=== PATIENT | female | born 1960 | race Caucasian/White ===

== ENCOUNTER 2017-06-13 21:26 | Inpatient (IN) | payer OTHER ==
[~2017-06-13] VITALS: Ht 160 cm; Wt 65.8 kg
--- NOTE | 2017-06-13 21:26 | NUR ---
BIB WHEELCHAIR FROM [facility] LOB[facility] TO ER BED 9
[2017-06-13 21:35] VITALS: BP 144/83
--- NOTE | 2017-06-13 21:36 | NUR ---
57 Y/O F W/C/O CHEST PRESSURE PAIN WHICH RADIATES TO L SIDE OF NECK AND NAUSEA X 2 HRS AGO. MED HX ASTHMA, GALLBLADDER REMOVED, AND HYSTERECTOMY. ON FASHION CONSULTANT SELLING, NSR, ER MD MADE AWARE. EKG DONE AT BEDSIDE.
--- NOTE | 2017-06-13 21:47 | NUR ---
Patient being evaluated by physician at bedside.
[2017-06-13] MEDS ORDERED: NITROGLYCERIN 0.4 MG TAB SL ONE (21:50)
[2017-06-13 22:17] LABS: HEMATOCRIT 42.8 % (36-48); HEMOGLOBIN 13.9 g/dL (12.0-16.0); MEAN CORPUSCULAR HEMOGLOBIN 28 pg (27-31); MEAN CORPUSCULAR HGB CONC 33 g/dL (33-37); MEAN CORPUSCULAR VOLUME 85 fL (80-94); PLATELET COUNT (AUTO) 398 K/uL (140-450); RED BLOOD CELL COUNT(AUTO) 5.04 MIL/uL (4.20-5.40); RED CELL DISTRIBUTION WIDTH 12.6 % (11.6-13.7); WHITE BLOOD COUNT (AUTO) 6.2 K/uL (4.8-10.8)
[2017-06-13] MEDS ORDERED: ONDANSETRON 4 MG/2 ML VIAL IVP ONE (22:20)
[2017-06-13] MEDS ORDERED: ACETAMINOPHEN EXTRA STRENGTH 500 MG TAB PO ONE (22:20)
[2017-06-13 22:31] LABS: EOSINOPHILS % (MANUAL) 1 % (0-4); LYMPHOCYTES % (MANUAL) 29 % (20-46); MONOCYTES % (MANUAL) 5 % (5-12)
[2017-06-13 22:33] LABS: PROTHROMBIN TIME 10.1 secs (10.8-13.4)
[2017-06-13 22:34] LABS: ANION GAP 13.4 (8-16); CARBON DIOXIDE 28.3 mmol/L (21-32); POTASSIUM 3.7 mmol/L (3.5-5.1)
[2017-06-13 22:35] LABS: ALBUMIN 4.3 g/dL (3.4-5.0); CREATININE 0.9 mg/dL (0.6-1.3); TOTAL BILIRUBIN 0.6 mg/dL (0.0-1.0)
[2017-06-13] MEDS ORDERED: MORPHINE SULFATE 2 MG/ML SYR IVP PRN (23:10)
[2017-06-13] MEDS ORDERED: ACETAMINOPHEN 325 MG TAB PO PRN (23:10)
[2017-06-13] MEDS ORDERED: MORPHINE SULFATE 4 MG/ML SYR IVP ONE (23:30)
--- NOTE | 2017-06-13 23:40 | NUR ---
Patient will be admitted to care of DR GONSALVES. Admited to TELEMETRY. Will go to room 111A. Belongings list completed. Report to THOMAS DAVALOS.
[2017-06-13 23:50] VITALS: BP 139/91
--- NOTE | 2017-06-13 23:50 | NUR ---
Admitted from ER, with chief complaint of CHEST PAIN, DX CHEST PAIN. 57 y/o, Female, Cooperative, AOX4, AMBULATORY, ABLE TO VERBALIZE NEEDS. PT IS SITTING UP IN BED, C/O CHEST PAIN/PRESSURE, PT WAS MEDICATED IN THE ER, WILL CONTINUE TO MONITOR. PT C/O NAUSEA/VOMITING, PT WAS MEDICATED IN ER, WILL MONITOR. PT DENIES SOB AT THIS TIME. IV ACCESS ASYMPTOMATIC, PATENT AND INTACT. SALINE LOCKED. DISCUSSED AND REVIEWED PLAN OF CARE WITH PT. PT VERBALIZED UNDERSTANDING. oriented to call light, bed, phone,television, bathroom, smoking policy, visiting hours, procedures, ID bracelet on. Belongings list checked. ALL NEEDS MET. SAFETY MEASURES ENSURED. CALL LIGHT WITHIN REACH. WILL CONTINUE TO MONITOR. Addendum: 06/14/17 at 0627 by Scar Olivas RN TO ADD: DID NOT APPLY SCDs DUE TO PT AMBULATORY AND SCHEDULED LOVENOX 40MG SUBQ DAILY IN THE AM.
--- NOTE | 2017-06-13 23:59 | NUR ---
PT TRASFERED TO FLOOR VIA GURNEY, ACCOMPANIED BY EMT AND RN. NO S/S OF DISTRESS NOTED UPON TRANSFER.
--- NOTE | 2017-06-14 00:15 | NUR ---
PT C/O CHEST PAIN/PRESSURE, SEE PAIN ASSESSMENT, ADMINISTERED NITROSTAT 0.4MG SL PRN ORDERED. PT C/O NAUSEA/VOMITING, ADMINISTERED ZOFRAN IVP PRN ORDERED. Addendum: 06/14/17 at 0226 by Scar Olivas RN WRONG TIME; CORRECT TIME: 06/14/17 0112
[2017-06-14] MEDS ORDERED: NITROGLYCERIN 0.4 MG TAB SL PRN (00:40)
[2017-06-14] MEDS ORDERED: MORPHINE SULFATE 4 MG/ML SYR IVP PRN (00:40)
--- NOTE | 2017-06-14 00:40 | NUR ---
CALLED DR RAMIREZ, [employer] TRUCK DRIVER FOR DR GONSALVES. DISCUSSED PT DX CHEST PAIN AND PT'S C/O UNRELIEVED CHEST PAIN/PRESSURE DESPITE MORPHINE 4MG IVP 45 MINS AGO IN ER, AND THAT PT REPORTS GREATER RELIEF FROM NITROSTAT 0.4MG SL IN ER. ALSO MADE AWARE THAT PT HAS N/V DESPITE ZOFRAN 2MG IVP 2 HOURS AGO IN ER. STATED IT IS OK TO GIVE ZOFRAN 2MG IVP PRN AT THIS TIME. ORDERS RECEIVED FOR MORPHINE 4MG IVP Q4H PRN FOR SEVERE PAIN, AND NITROSTAT 0.4MG Q2H SL PRN FOR CHEST PAIN. ORDERS PENDING, WILL CARRY OUT.
[2017-06-14] MEDS: ALBUTEROL 0.083% 2.5 MG/3 ML NEBU IH SCH ×3 (01:00→13:12)
--- NOTE | 2017-06-14 01:01 | NUR ---
PT REFUSED INITIAL HHN TX AT THIS TIME, PT STATES SHE IS FEELING NAUSEOUS AND IS BREATHING FINE, NO RESP DISTRESS OR SOB NOTED, O2 SAT 97% ON RA, WILL CONTINUE WITH NEXT SCHEDULED TX.
[2017-06-14] MEDS: ONDANSETRON 4 MG/2 ML VIAL IVP PRN ×2 (01:12→10:42)
--- NOTE | 2017-06-14 01:12 | NUR ---
PT C/O CHEST PAIN/PRESSURE, SEE PAIN ASSESSMENT, ADMINISTERED NITROSTAT 0.4MG SL PRN ORDERED. PT C/O NAUSEA/VOMITING, ADMINISTERED ZOFRAN IVP PRN ORDERED.
[2017-06-14] MEDS ORDERED: ZOLPIDEM 10 MG TAB PO PRN (02:50)
--- NOTE | 2017-06-14 02:52 | NUR ---
CALLED DR RAMIREZ, ANDROID UI DEVELOPER FOR DR GONSALVES. DISCUSSED PT DX CHEST PAIN, AND PT'S REPORTED AMBIEN 10MG PO FOR INSOMNIA AT HOME, AND PT C/O INSOMNIA AT THIS TIME. STATED IT IS OK TO CONTINUE HOME MED. ORDERS PENDING, WILL CARRY OUT.
--- NOTE | 2017-06-14 03:15 | NUR ---
PT RESTING COMFORTABLY IN BED, NO S/S OF ACUTE DISTRESS. PT REPORTS RELIEF OF CHEST PAIN, 2/10 AND RELIEF OF NAUSEA/VOMITING, STATING "IT'S BETTER." PT C/O INSOMNIA, ADMINISTERED AMBIEN PO PRN ORDERED WITH EDUCATION. PT VERBALIZED UNDERSTANDING, TOLERATED MED WELL. PT REFUSED TO LET PHARMACY KEEP VENTOLIN INHALER DESPITE EDUCATION OF POLICY AND SCHEDULED ALBUTEROL BREATHING TREATMENTS, STATING "I'D FREAK OUT IF I DON'T HAVE IT WITH ME." PT INSTRUCTED TO USE CALL LIGHT WHEN FEELING SOB, PT VERBALIZED UNDERSTANDING. ALL NEEDS MET. SAFETY MEASURES ENSURED. CALL LIGHT WITHIN REACH. WILL CONTINUE TO MONITOR.
[2017-06-14 04:00] VITALS: BP 105/54
[2017-06-14] MEDS ORDERED: ZOLP10TA1 PO (04:01)
[2017-06-14] MEDS ORDERED: ALBU-118 IH (04:01)
[2017-06-14] MEDS ORDERED: ALBU0.0912 IH (04:01)
[2017-06-14 04:43] LABS: BASOPHILS # (AUTO) 0.3 K/uL (0.00-0.22); BASOPHILS % (AUTO) 4.7 % (0.0-2.0); EOSINOPHILS # (AUTO) 0.3 K/uL (0-0.4); EOSINOPHILS % (AUTO) 4.4 % (0.0-4.0); HEMATOCRIT 40.5 % (36-48); HEMOGLOBIN 13.1 g/dL (12.0-16.0); LYMPHOCYTES # (AUTO) 1.5 K/uL (2.5-16.5); LYMPHOCYTES % (AUTO) 24.6 % (20.5-51.1); MEAN CORPUSCULAR HEMOGLOBIN 28 pg (27-31); MEAN CORPUSCULAR HGB CONC 32 g/dL (33-37); MEAN CORPUSCULAR VOLUME 85 fL (80-94); MONOCYTES # (AUTO) 0.5 K/uL (0.8-1.0); NEUTROPHILS # (AUTO) 3.6 K/uL (1.8-7.7); NEUTROPHILS % (AUTO) 58.3 % (42.2-75.2); PLATELET COUNT (AUTO) 355 K/uL (140-450); RED BLOOD CELL COUNT(AUTO) 4.75 MIL/uL (4.20-5.40); RED CELL DISTRIBUTION WIDTH 12.7 % (11.6-13.7); WHITE BLOOD COUNT (AUTO) 6.2 K/uL (4.8-10.8)
--- NOTE | 2017-06-14 05:45 | NUR ---
PT SLEEPING COMFORTABLY, NO S/S OF ACUTE DISTRESS. ALL NEEDS MET. SAFETY MEASURES ENSURED. CALL LIGHT WITHIN REACH. WILL CONTINUE TO MONITOR.
[2017-06-14 06:03] LABS: ALBUMIN 3.8 g/dL (3.4-5.0); ANION GAP 11.2 (8-16); CARBON DIOXIDE 29.3 mmol/L (21-32); CREATININE 0.9 mg/dL (0.6-1.3); POTASSIUM 3.5 mmol/L (3.5-5.1); TOTAL BILIRUBIN 0.7 mg/dL (0.0-1.0)
--- NOTE | 2017-06-14 07:21 | NUR ---
ENDORSED PLAN OF CARE TO AM NURSE. CONDITION STABLE.
--- NOTE | 2017-06-14 07:21 | NUR ---
RECEIVED REPORT FROM NIGHT NURSE, PT IS AAOX4, ON ROOM AIR, IV TO RIGHT AC 20G SALINE LOCK PATENT AND INTACT, SKIN INTACT, PT STATES NO CHEST PAIN AT THIS TIME, INITIAL ASSESSMENT COMPLETED, REVIEWED PLAN OF CARE WITH PT, PT VERBALIZED UNDERSTANDING. ALL SAFETY PRECAUTIONS IN PLACE, CALL LIGHT WITHIN REACH. WILL CONTINUE TO MONITOR.
--- NOTE | 2017-06-14 07:52 | NUR ---
PATIENT HAS BEEN SCREENED AND CATEGORIZED MODERATE NUTRITION RISK. PATIENT WILL BE SEEN WITHIN 3-5 DAYS OF ADMISSION. 06/16/17-06/18/[address]
[2017-06-14 08:00] VITALS: BP 94/57
[2017-06-14] MEDS ORDERED: ASPIRIN 81 MG TAB.CHEW PO SCH (09:00)
[2017-06-14] MEDS ORDERED: ENOXAPARIN 40 MG/0.4 ML SYR SUBQ SCH (09:00)
--- NOTE | 2017-06-14 09:28 | NUR ---
DUE MEDICATIONS GIVEN, PT TOLERATED WELL, ALL NEEDS MET, PT STATES NO CHEST PAIN. WILL CONTINUE TO MONITOR.
--- NOTE | 2017-06-14 10:41 | NUR ---
CM NOTE INITIAL REVIEW FAXED TO [facility] [phone] ELENITA GOMESA # [phone]
--- NOTE | 2017-06-14 10:43 | NUR ---
PT C/O NAUSEA, MEDICATED PER MD ORDERS. ALL NEEDS MET. WILL CONTINUE TO MONITOR.
--- NOTE | 2017-06-14 11:45 | NUR ---
PT CURRENTLY RESTING IN BED, NO S/S OF DISTRESS NOTED. ALL NEEDS MET.
[2017-06-14 12:00] VITALS: BP 105/69
--- NOTE | 2017-06-14 13:22 | NUR ---
STRESS TEST DONE. PATIENT BACK TO HER ROOM IN STABLE CONDITION
--- NOTE | 2017-06-14 14:27 | NUR ---
DISCUSSED DISCHARGE PLAN WITH PT, PT VERBALIZED UNDERSTANDING.
--- NOTE | 2017-06-14 14:54 | NUR ---
PT SIGNED ALL DISCHARGE PAPERWORK, DISCHARGE EDUCATION GIVEN,FOLLOW UP INFORMATION GIVEN, PRESCRIPTION EDUCATION GIVEN, PT VERBALIZED UNDERSTANDING, IV REMOVED TIP INTACT, ID BANDS REMOVED. ALL PERSONAL BELONGINGS WITH PT.
--- NOTE | 2017-06-14 14:57 | NUR ---
PT WAS WALKED OUT TO FRONT LOBBY IN STABLE CONDITION.
== END 2017-06-14 14:57 | disposition home or self-care (01) | DRG 203 ==
LOC: MED 21:26 → MTU 23:15
PROVIDERS: ADMIT Hospitalist; ATTEND Hospitalist
DX: R07.89 Other chest pain (principal); J45.909 Unspecified asthma, uncomplicated; Z88.5 Allergy status to narcotic agent; Z98.84 Bariatric surgery status; Z90.710 Acquired absence of both cervix and uterus; Z90.49 Acquired absence of other specified parts of digestive tract
CPT/HCPCS: 36415; 71010; 80053; 83880; 84484; 85025; 85610; 85730; 87081; 93005; 93017; 94640; 96374; 96375; 99285; J1650; J2270; J2405; J7613; Q0092